=== PATIENT | male | born 1960 | race Caucasian/White ===

== ENCOUNTER 2018-04-08 18:12 | Emergency (ER) | payer SELFPAY ==
[2018-04-08] MEDS ORDERED: ONDANSETRON HCL INJ/PF 4 MG/2 ML SDV IV ONE (19:18)
[2018-04-08] MEDS ORDERED: FENTANYL CITRATE INJ/PF 100 MCG/2 ML AMPUL IV ONE (19:18)
--- NOTE | 2018-04-08 19:20 | ER Document Report ---
ED Medical Screen (RME) - General Chief Complaint: Abdominal Pain Stated Complaint: ABDOMINAL PAIN Time Seen by Provider: 04/08/18 19:18 Notes: RAPID MEDICAL EVALUATION DISCLOSURE I have seen this patient as part of a Rapid Medical Evaluation and, if applicable, placed any initially appropriate orders. The patient will be seen and fully evaluated, including a full history and physical exam, by a provider ( in Main ED or Fast Track) when a room becomes available. 57-year-old male here with complaints of left lower quadrant abdominal pain nausea vomiting that started 4 hours ago. He does not have any diarrhea hematuria dysuria. He has a history of kidney stones but does not know the that this feels similar since "it feels deep". He has taken an oxycodone for the pain. EXAM Patient actively vomiting Mild left lower quadrant tenderness to palpation No flank or CVA tenderness TRAVEL OUTSIDE OF THE [place] IN LAST 30 DAYS: No - Related Data Allergies/Adverse Reactions: No Known Allergies Allergy (Verified 04/08/18 18:24) Past Medical History - Past Medical History Cardiac Medical History: Denies: Hx Hypercholesterolemia, Hx Hypertension Endocrine Medical History: Denies: Hx Diabetes Mellitus Type 1, Hx Diabetes Mellitus Type 2 Renal/ Medical History: Reports: Hx Kidney Stones Physical Exam - Vital signs Vitals: Temp Pulse Resp BP Pulse Ox 97.6 F 57 L 18 164/81 H 99 04/08/18 18:48 04/08/18 18:48 04/08/18 18:48 04/08/18 18:48 04/08/18 18:48 Course - Vital Signs Vital signs: Temp Pulse Resp BP Pulse Ox 97.6 F 57 L 18 164/81 H 99 04/08/18 18:48 04/08/18 18:48 04/08/18 18:48 04/08/18 18:48 04/08/18 18:48
[2018-04-08] MEDS ORDERED: RINGERS SOLUTION,LACTATED 1,000 ML IV ONE (19:46)
--- NOTE | 2018-04-08 20:29 | RADIOLOGY REPORT (SQ) ---
EXAM DESCRIPTION: CT LTD RENAL STONE PROTOCOL ON COMPLETED DATE/TIME: 04/08/2018 8:08 pm REASON FOR STUDY: LLQ pain COMPARISON: CT abdomen and pelvis noncontrast 04/07/2014. TECHNIQUE: CT scan of the abdomen and pelvis performed without intravenous or oral contrast. Images reviewed with lung, soft tissue, and bone windows. Reconstructed coronal and sagittal MPR images revi ewed. All images stored on PACS. All CT scanners at this facility use dose modulation, iterative reconstruction, and/or weight based d osing when appropriate to reduce radiation dose to as low as reasonably achievable (ALARA). [facility]: Dose Right [facility]: CareDose [facility]: Dose Right [facility]: Teradose 4D [facility]: Smart ChirpVision RADIATION DOSE: mGy. LIMITATIONS: None. FINDINGS: LOWER CHEST: No consolidation or pleural effusion. NON-CONTRASTED LIVER, SPLEEN, ADRENALS: Evaluation limited by lack of IV contrast. Redemonstration o f a low-attenuation lesion at the right hepatic lobe measuring approximately 3.0 x 2.5 cm, may repres ent a cyst or hemangioma. A 2.5 cm low-density lesion at the left adrenal gland measuring negative [place] unit is probably a small adenoma. PANCREAS: No peripancreatic inflammatory changes. GALLBLADDER: No identified stones by CT criteria. No inflammatory changes to suggest cholecystitis. RIGHT KIDNEY AND URETER: No perinephric stranding. No significant calcifications. No hydronephros is or hydroureter. LEFT KIDNEY AND URETER: There is left-sided perinephric stranding. There is mild left hydronephrosis . There are left-sided parapelvic cysts. No obstructing ureteral calculi are identified. AORTA AND RETROPERITONEUM: No abdominal aortic aneurysm. No retroperitoneal masses or adenopathy. BOWEL AND PERITONEAL CAVITY: No dilated bowel loops or inflammatory changes. No free fluid. Scattere d colonic diverticula with no CT evidence for acute diverticulitis. APPENDIX: Surgically absent. PELVIS, BLADDER, AND ABDOMINAL WALL:The urinary bladder is is decompressed. The 2 mm calcification i s seen at the base of the urinary bladder adjacent to the left ureterovesical junction. No pelvic ma ss. No free fluid. There is a small fat containing umbilical hernia. BONES: No degenerative changes are noted at the spine. IMPRESSION: 1. Left sided perinephric stranding with mild left hydronephrosis. A 2 mm calculus at the base of the urinary bladder adjacent to the left UVJ, may represent a recently passed calculus. 2. A 3.0 x 2.5 cm low-attenuation lesion at the right hepatic lobe, may represent a cyst or hemangio ma. 3. A 2.5 cm left adrenal adenoma. 4. Mild colonic diverticulosis. COMMENT: Quality ID # [id number]: Final reports with documentation of one or more dose reduction techniques (e.g., Automated exposure control, adjustment of the mA and/or kV according to patient size, use of iterative reconstruction technique) TECHNICAL DOCUMENTATION: JOB ID: [id number] 2010 [employer]- All Rights Reserved Reading location - IP/workstation name: [email or web address]
[2018-04-08] MEDS ORDERED: MORPHINE SULFATE 10 MG/ML INJ IV ONE (20:49)
--- NOTE | 2018-04-08 20:54 | ER Document Report ---
ED GI/ - General Chief Complaint: Abdominal Pain Stated Complaint: ABDOMINAL PAIN Time Seen by Provider: 04/08/18 19:18 Mode of Arrival: Ambulatory Information source: Patient Notes: Patient is a 57-year-old male who presents with chief complaint of left lower quadrant pain. Patient reports that the pain started at 3 PM and had a gradual onset. Patient denies any radiation of the pain, denies any dysuria, denies any nausea or vomiting. Patient denies any fever. Patient reports he has a history of kidney stones and states that this pain feels similar however with his normal kidney stones the pain starts in the left flank and radiates to the right lower quadrant which is a different onset than this. Patient reports that the pain medicine he was given earlier only lasted about 30 minutes and his pain is currently 4 out of 5. Patient reports that his last bowel movement was yesterday and was normal. Patient reports only past medical history is kidney stones, past surgical history of appendectomy and patient does not take any daily medications. TRAVEL OUTSIDE OF THE [place] IN LAST 30 DAYS: No - Related Data Allergies/Adverse Reactions: No Known Allergies Allergy (Verified 04/08/18 18:24) Past Medical History - General Information source: Patient - Social History Smoking Status: Never Smoker Chew tobacco use (# tins/day): No Frequency of alcohol use: Social Drug Abuse: None Family History: Reviewed & Not Pertinent Patient has suicidal ideation: No Patient has homicidal ideation: No - Past Medical History Cardiac Medical History: Denies: Hx Hypercholesterolemia, Hx Hypertension Endocrine Medical History: Denies: Hx Diabetes Mellitus Type 1, Hx Diabetes Mellitus Type 2 Renal/ Medical History: Reports: Hx Kidney Stones. Denies: Hx Peritoneal Dialysis Review of Systems - Review of Systems Constitutional: See HPI EENT: No symptoms reported Cardiovascular: No symptoms reported Respiratory: No symptoms reported Gastrointestinal: See HPI Genitourinary: See HPI Male Genitourinary: See HPI Musculoskeletal: No symptoms reported Skin: No symptoms reported Hematologic/Lymphatic: No symptoms reported Neurological/Psychological: No symptoms reported Physical Exam - Vital signs Vitals: Temp Pulse Resp BP Pulse Ox 97.6 F 57 L 18 164/81 H 99 04/08/18 18:48 04/08/18 18:48 04/08/18 18:48 04/08/18 18:48 04/08/18 18:48 - Notes Notes: PHYSICAL EXAMINATION: GENERAL: Well-appearing, well-nourished and in no acute distress. HEAD: Atraumatic, normocephalic. EYES: Pupils equal round and reactive to light, extraocular movements intact, sclera anicteric, conjunctiva are normal. ENT: Nares patent, oropharynx clear without exudates. Moist mucous membranes. NECK: Normal range of motion, supple without lymphadenopathy LUNGS: Breath sounds clear to auscultation bilaterally and equal. No wheezes rales or rhonchi. HEART: Regular rate and rhythm without murmurs ABDOMEN: Soft, nondistended abdomen. Tenderness with palpation to left lower quadrant/pelvic area. No guarding, no rebound. No masses appreciated. Musculoskeletal: Normal range of motion, no pitting or edema. No cyanosis. NEUROLOGICAL: Cranial nerves grossly intact. Normal speech, normal gait. Normal sensory, motor exams PSYCH: Normal mood, normal affect. SKIN: Warm, Dry, normal turgor, no rashes or lesions noted. Course - Re-evaluation Re-evalutation: Patient's presentation and history are consistent with a kidney stone. Patient was seen by provider in triage who ordered initial workup including CT limited for evaluation of renal stones. Patient does appear to be in mild distress upon my initial assessment, patient has already received 50 mcg of fentanyl although he states it has worn off. Will order additional pain medications while awaiting CT results as well as lab tests. CT limited shows 2 mm calculus in the bladder as well as a 2.5 cm left adrenal adenoma. CBC reveals white blood count of 16.4 this is likely due to patient's vomiting, chemistry is unremarkable, urine is unremarkable. Patient does report that his pain has subsided with pain medications and IV fluids. Will discharge patient home with pain and nausea medications as well as a referral to urology for follow-up. Discussed the finding of the 2.5 cm left adrenal adenoma with the patient and the need for him to follow-up with his primary care provider regarding these findings. Patient's who is at bedside states that she believes that he has had this finding before however agrees to follow-up with his primary. A copy of the CT performed report was provided with his discharge papers. - Vital Signs Vital signs: Temp Pulse Resp BP Pulse Ox 98.7 F 63 16 125/69 96 04/08/18 23:50 04/08/18 23:50 04/08/18 23:50 04/08/18 23:50 04/08/18 23:50 - Laboratory Result Diagrams: 04/08/18 20:45 04/08/18 20:45 Laboratory results interpreted by me: 04/08/18 04/08/18 04/08/18 20:24 20:45 20:45 WBC 16.4 H Seg Neuts % (Manual) 92 H Lymphocytes % (Manual) 3 L Abs Neuts (Manual) 15.1 H Sodium 145.1 H Glucose 137 H Urine Protein 30 H Urine Ketones 20 H Discharge - Discharge Clinical Impression: Kidney stone Vomiting Qualifiers: Vomiting type: unspecified Vomiting Intractability: unspecified Nausea presence : with nausea Qualified Code(s): R11.2 - Nausea with vomiting, unspecified Condition: Stable Disposition: HOME, SELF-CARE Additional Instructions: Kidney Stone You are passing or have passed a kidney stone. These stones are usually due to increased calcium or uric acid concentrations in your urine. Stones within the kidney itself are not painful. The pain occurs as the stone leaves the kidney to pass down the long tube, called the ureter, leading to the bladder. If the stone is small, it will usually pass by itself. Most patients can pass the stone at home. You will usually receive medications for pain, nausea or vomiting, and sometimes a medication to assist in passing the kidney stone. However, if the pain is very severe or if vomiting prevents you from taking oral pain medications, you may need to return for further treatment. Drink three or four quarts of fluids per day. You will be given pain medication (if needed) and urine strainers. Strain all your urine to see if the stone passes. If your doctor has asked you to bring the stone in for analysis, return with the stone once it has passed. Return if pain or vomiting become severe, if you develop a high fever, if you are unable to pass your urine, or if other unusual symptoms occur. There is a 2.5 cm left adrenal adenoma that was noted on your CT scan. This should be followed up by your primary care provider. I have included a copy of your CT result report for their review. [facility] [address] [place] [address] Prescriptions: Morphine Sulfate [Morphine Ir 15 Mg Tablet] 15 mg PO Q4H PRN #12 tablet PRN Reason: Ondansetron [Zofran Odt 4 mg Tablet] 1 - 2 tab PO Q4H PRN #15 tab.rapdis PRN Reason: For Nausea/Vomiting
[2018-04-08 21:00] LABS: APPEARANCE,URINE TURBID; BILIRUBIN,URINE NEGATIVE (NEGATIVE); COLOR,URINE AMBER; GLUCOSE, URINE NEGATIVE (NEGATIVE); KETONES,URINE 20 mg/dL (NEGATIVE); LEUKOCYTE ESTERASE,URINE NEGATIVE (NEGATIVE); NITRITE,URINE NEGATIVE (NEGATIVE); PROTEIN,URINE 30 mg/dL (NEGATIVE); URINE SPECIFIC GRAVITY 1.029; UROBILINOGEN,URINE NEGATIVE mg/dL (<2.0)
[2018-04-08 21:11] LABS: HEMATOCRIT 45.7 % (37.9-51.0); HEMOGLOBIN 15.3 g/dL (13.5-17.0); MEAN CORPUSCULAR HEMOGLOBIN 30.3 pg (27.0-33.4); MEAN CORPUSCULAR HGB CONC 33.6 g/dL (32.0-36.0); MEAN CORPUSCULAR VOLUME 90 fl (80-97); PLATELET COUNT 228 10^3/uL (150-450); RED BLOOD COUNT 5.06 10^6/uL (4.35-5.55); WHITE BLOOD COUNT 16.4 10^3/uL (4.0-10.5)
[2018-04-08 21:36] LABS: ABSOLUTE LYMPHOCYTES# (MANUAL) 0.8 10^3/uL (0.5-4.7); ABSOLUTE MONOCYTES # (MANUAL) 0.5 10^3/uL (0.1-1.4); ABSOLUTE NEUTROPHILS# (MANUAL) 15.1 10^3/uL (1.7-8.2); BASOPHILS % (MANUAL) 0 % (0-2); EOSINOPHILS % (MANUAL) 0 % (0-6); LYMPHOCYTES % (MANUAL) 3 % (13-45); MONOCYTES % (MANUAL) 3 % (3-13); SEGMENTED NEUTROPHILS % (MAN) 92 % (42-78); TOTAL CELLS COUNTED 100
[2018-04-08 21:37] LABS: PLATELET COMMENT ADEQUATE; RBC MORPHOLOGY COMMENT NORMO-CYTIC/CHROMIC
[2018-04-08 21:39] LABS: ANION GAP 15 (5-19); BLOOD UREA NITROGEN 20 mg/dL (7-20); CALCIUM 9.6 mg/dL (8.4-10.2); CARBON DIOXIDE 27 mmol/L (22-30); CHLORIDE 103 mmol/L (98-107); GLUCOSE 137 mg/dL (75-110); POTASSIUM 4.5 mmol/L (3.6-5.0); SODIUM 145.1 mmol/L (137-145)
[2018-04-08] MEDS ORDERED: KETOROLAC TROMETHAMINE INJ/PF 30 MG/1 ML SDV IV ONE (22:05)
[2018-04-08] MEDS ORDERED: HYDROCODONE/ACETAMINOPHEN 5-325 MG (6 TAB/ER DISP) PO PRN (22:44)
[2018-04-08] MEDS ORDERED: ONDANSETRON ODT 4 MG TAB (6 TAB/ER DISP) PO PRN (22:45)
[2018-04-08 23:51] VITALS: BP 125/69
== END 2018-04-08 23:49 | disposition home or self-care (01) ==
LOC: ER 18:12
DX: N20.0 Calculus of kidney (principal); R11.2 Nausea with vomiting, unspecified; R10.32 Left lower quadrant pain
CPT/HCPCS: 99284; 96375; 96365; 36415; 85025; 80048; 81001; 76380; J3010; J1885; J2270; J2405; J7120

== ENCOUNTER 2020-09-03 11:47 | Day surgery (SDC) | payer BC ==
[~2020-09-03 11:47] MED LIST: FENTANYL CITRATE INJ/PF 100 MCG/2 ML AMPUL ONE; KETOROLAC TROMETHAMINE 0.45% 4 DROP/0.4 ML DROPERETTE OS PRN; MIDAZOLAM 2 MG/2 ML INJ ONE
[2020-09-03] MEDS: TROPICAMIDE 1% OPH SOLN 15 ML OS PRN ×3 (12:37→12:56)
[2020-09-03] MEDS: TETRACAINE HCL 0.5% OPH SOLN 4 ML OS PRN ×3 (12:37→13:18)
[2020-09-03] MEDS: CYCLOPENTOLATE 0.2%/PHENYLEPHRINE 1% OPH SOLN 2 ML OS PRN ×3 (12:38→12:56)
[2020-09-03] MEDS: BESIFLOXACIN HCL 0.6% OPH SUSP 5 ML BOTTLE OS PRN ×4 (12:38→13:36)
[2020-09-03] MEDS: EPINEPHRINE INJ/PF 1 MG/1 ML AMPULE ONE ×2 (13:28)
[2020-09-03] MEDS: CHONDR SU A NA/HYALUR INTRAOC KIT (SURGICARE) ONE ×2 (13:28)
[2020-09-03] MEDS: LIDOCAINE 1%/PHENYLEPHRINE 1.5% 1 ML VIAL ONE ×2 (13:28)
[2020-09-03] MEDS: DORZOLAMIDE HCL 2%/TIMOLOL MALEAT 0.5% OPH SOLN 10 ML OS PRN ×2 (13:36)
[2020-09-03] MEDS: PREDNISOLONE ACETATE 1% OPH SUSP 5 ML OS PRN ×2 (13:36)
--- NOTE | 2020-09-03 15:21 | Operative Report ---
Operative Report-[facility] Operative Report: DATE OF SURGERY: September 03, 2020 PREOPERATIVE DIAGNOSIS: NUCLEAR CATARACT, LEFT EYE. POSTOPERATIVE DIAGNOSIS: NUCLEAR CATARACT, LEFT EYE. PROCEDURE PERFORMED: PHACOEMULSIFICATION WITH POSTERIOR CHAMBER INTRAOCULAR LENS IMPLANT, LEFT EYE. SURGEON: Christiano Johnson DO MEDICATIONS AND ANESTHESIA: Versed: IV Versed Tetracaine drops: 1 to 2 drops given as needed COMPLICATION: None INDICATIONS FOR SURGERY: Medical necessity: Best corrected visual acuity worse than 20/40 secondary to cataracts with impairment of ability to carry out needs or desired activities, blurred vision, visual distortion, reduced contrast sensitivity and/or glare with association functional impairment and supporting documentation/testing, and cataracts causing symptomatic impairment of visual functions not corrected with tolerable changes in glasses or contact lenses interfering with activities of daily life. PROCEDURE: Consent: The risks, benefits and alternatives of this procedures was discussed with the patient. The patient read and signed the consent forms, was identified and was seated in the exam chair. IOL: MX 60 E 19.0 IOL Diopters: Phacoemulsification with posterior chamber intraocular lens implant: The face was prepped with 5% povidone iodine solution, and a few drops of 5% povidone iodine solution was instilled into the inferior fornix. A non-fenestrated drape was placed over the eye and the lids were parted with the speculum. A paracentesis was made with a 15 degree blade, and 1% lidocaine MPF followed by viscoelastic was injected into the anterior chamber. A 2.4 mm metal micro- keratome was used to create a temporal clear corneal incision. A circular anterior capsulorrhexis was created, followed by hydro-dissection and hydro- delineation. The phacoemulsification hand piece was inserted and the nucleus was removed with the Phaco chop technique. The irrigation-aspiration hand piece was used to remove the residual cortex, and vacuum the posterior capsule. The capsular bag was inflated and viscoelastic and the above-mentioned IOL was injected into the eye with care to insert both leaning and trailing haptics in the capsular bag. The irrigation/aspiration hand piece was reinserted to remove residual viscoelastic from the capsular bag and anterior chamber. The corneal incision was hydrated, and anterior chamber was inflated with sterile BSS via the paracentesis site, and found to be watertight. Postop medication:1 drop of prednisolone into operative by followed by 1 drop of Cosopt into operative eye followed by 1 drop of Besivance intraoperative by Other:
== END 2020-09-03 14:12 ==
LOC: SC 11:47
PROVIDERS: ATTEND Ophthalmology
DX: H25.12 Age-related nuclear cataract, left eye (principal)
CPT/HCPCS: 66984; V2632; J2250; J3490 ×2; J0171; J3010

== ENCOUNTER 2020-09-17 11:03 | Day surgery (SDC) | payer BC ==
[~2020-09-17 11:03] MED LIST changes: +CHONDR SU A NA/HYALUR INTRAOC KIT (SURGICARE) ONE; +DORZOLAMIDE HCL 2%/TIMOLOL MALEAT 0.5% OPH SOLN 10 ML OD PRN; +EPINEPHRINE INJ/PF 1 MG/1 ML AMPULE ONE; -FENTANYL CITRATE INJ/PF 100 MCG/2 ML AMPUL ONE; +KETOROLAC TROMETHAMINE 0.45% 4 DROP/0.4 ML DROPERETTE OD PRN; -KETOROLAC TROMETHAMINE 0.45% 4 DROP/0.4 ML DROPERETTE OS PRN; +LIDOCAINE 1%/PHENYLEPHRINE 1.5% 1 ML VIAL ONE; +PREDNISOLONE ACETATE 1% OPH SUSP 5 ML OD PRN
[2020-09-17] MEDS: TETRACAINE HCL 0.5% OPH SOLN 4 ML OD PRN ×3 (12:11→12:33)
[2020-09-17] MEDS: CYCLOPENTOLATE 0.2%/PHENYLEPHRINE 1% OPH SOLN 2 ML OD PRN ×3 (12:12→12:27)
[2020-09-17] MEDS: BESIFLOXACIN HCL 0.6% OPH SUSP 5 ML BOTTLE OD PRN ×3 (12:12→12:51)
[2020-09-17] MEDS: TROPICAMIDE 1% OPH SOLN 15 ML OD PRN ×3 (12:12→12:28)
--- NOTE | 2020-09-17 14:35 | Operative Report ---
Operative Report-[facility] Operative Report: DATE OF SURGERY: September 17, 2020 PREOPERATIVE DIAGNOSIS: NUCLEAR CATARACT, RIGHT EYE. POSTOPERATIVE DIAGNOSIS: NUCLEAR CATARACT, RIGHT EYE. PROCEDURE PERFORMED: PHACOEMULSIFICATION WITH POSTERIOR CHAMBER INTRAOCULAR LENS IMPLANT, RIGHT EYE. SURGEON: Christiano Johnson DO MEDICATIONS AND ANESTHESIA: Versed: IV Versed Tetracaine drops: 1 to 2 drops given as needed COMPLICATION: None INDICATIONS FOR SURGERY: Medical necessity: Best corrected visual acuity worse than 20/40 secondary to cataracts with impairment of ability to carry out needs or desired activities, blurred vision, visual distortion, reduced contrast sensitivity and/or glare with association functional impairment and supporting documentation/testing, and cataracts causing symptomatic impairment of visual functions not corrected with tolerable changes in glasses or contact lenses interfering with activities of daily life. PROCEDURE: Consent: The risks, benefits and alternatives of this procedures was discussed with the patient. The patient read and signed the consent forms, was identified and was seated in the exam chair. IOL: MX 60 E 19.5 IOL Diopters: Phacoemulsification with posterior chamber intraocular lens implant: The face was prepped with 5% povidone iodine solution, and a few drops of 5% povidone iodine solution was instilled into the inferior fornix. A non-fenestrated drape was placed over the eye and the lids were parted with the speculum. A paracentesis was made with a 15 degree blade, and 1% lidocaine MPF followed by viscoelastic was injected into the anterior chamber. A 2.4 mm metal micro- keratome was used to create a temporal clear corneal incision. A circular anterior capsulorrhexis was created, followed by hydro-dissection and hydro- delineation. The phacoemulsification hand piece was inserted and the nucleus was removed with the Phaco chop technique. The irrigation-aspiration hand piece was used to remove the residual cortex, and vacuum the posterior capsule. The capsular bag was inflated and viscoelastic and the above-mentioned IOL was injected into the eye with care to insert both leaning and trailing haptics in the capsular bag. The irrigation/aspiration hand piece was reinserted to remove residual viscoelastic from the capsular bag and anterior chamber. The corneal incision was hydrated, and anterior chamber was inflated with sterile BSS via the paracentesis site, and found to be watertight. Postop medication: 1 drop of prednisolone into operative by followed by 1 drop of Cosopt into operative eye followed by 1 drop of Besivance intraoperative by other:
== END 2020-09-17 13:27 ==
LOC: SC 11:03
PROVIDERS: ATTEND Ophthalmology
DX: H25.11 Age-related nuclear cataract, right eye (principal); Z98.42 Cataract extraction status, left eye
CPT/HCPCS: 66984; J2250; J3490 ×2; J0171; V2632